=== PATIENT | female | born 1995 | race Caucasian/White ===

== ENCOUNTER 2025-04-24 08:52 | Emergency (ER) | payer OTHER, SELFPAY ==
[2025-04-24 08:54] VITALS: BP 136/97
--- NOTE | 2025-04-24 08:59 | ED.GENMED ---
History of Present Illness
General
Chief Complaint: Problems
Source: patient
Exam Limitations: none
Time Seen by Provider: 04/24/25 08:59
Nursing documentation reviewed up to this point in time: agreed with
History of Present Illness
History of Present Illness:
Patient is a 29-year-old female sent by [facility]YS[facility] [employer] Dr. Garcia. Patient was sent for evaluation as her hCG is not rising appropriate Patient reports her last menstrual period was March 15. On April 18 her beta was 414 on April 20 it was 644
and April 23 it was 801. Patient did have an episode of spotting 2 weeks ago however has not had any bleeding since then. She has no abdominal pain. This is patient's first .
Phy Exam
General Physical Exam
General Presentation: no apparent distress
General age: appears stated age
General Skin: warm and dry
General Habitus: normal
General Mental: alert
General Hydration: appears well hydrated
Gastrointestinal Exam
Gastrointestinal Exam: non tender and soft
Neurological Exam
Neurological Exam: alert and oriented x3
Musculoskeletal Exam
Musculoskeletal Exam: full ROM
Skin Exam
Skin Exam: normal color and warm/dry
Psychiatric Exam
Psychiatric Exam: normal mood/affect
Course
Orders/Labs/Results
Orders:
Orders
04/24/25 09:17
IV Insert/Care/Rem.- Treatment PRN
0.9% Sodium Chloride 1000 ml [Nss] 1,000 ml IV BOLUS
US W Transvaginal Urgent
Reason For Exam: hcg not rising poss ectopic
04/24/25 09:35
Beta HCG Quantitative Urgent
Is this a screen?: No
Complete Blood Count/With Diff Urgent
Comprehensive Metabolic Panel Urgent
04/24/25 11:14
Add On- LAB Urgent
Comments:: SST tube in lab
Tests Added?: Progesterone
Abnormal Lab Results
04/24/25
09:35
RBC 4.18 L 10^6/uL
(4.20-5.40)
Sodium 134 L mmol/L
(135-145)
Glucose 105 H mg/dl
(70-99)
04/24/25 09:35
04/24/25 09:35
Vital Signs
Initial and Last Documented VS:
Initial Vital Signs
Temp Pulse Resp BP Pulse Ox
98.4 F 105 16 136/97 98
04/24/25 08:54 04/24/25 08:54 04/24/25 08:54 04/24/25 08:54 04/24/25 08:54
Last Documented Vital Signs
Temp Pulse Resp BP Pulse Ox
98 F 85 16 112/73 99
04/24/25 09:10 04/24/25 11:34 04/24/25 09:10 04/24/25 11:34 04/24/25 11:34
Information
Weeks gestation: N/A
Location: N/A
MDM/Problems Addressed
Differential Diagnosis Includes:
Not limited to failed , ectopic
MDM/Problems Addressed:
As documented patient is a 29-year-old female 1 sent by her doctor for inappropriate rising of hCG levels. Patient's hCG on April 18 was 414, on April 20 was 644 and yesterday was 801. Today's hCG is 656.57 she was sent in for concern
for ectopic. Patient had an episode of spotting 2 weeks ago no bleeding since and has had no abdominal pain. Ultrasound today does not show any acute findings consistent with ectopic. There is no free fluid or adnexal mass. There is a cystic
structure within the endometrial canal which may represent a gestational sac but no embryo or yolk sac is visualized.
She is well-appearing in the ER case discussed with [facility].
11:00: Dr. Matthew currently at bedside eval pt
As discussed with OB patient to be discharged home for repeat outpatient hCG quantitative in 2 days. I did write patient a prescription for outpatient blood work and instructed her to go to the [place] lab. She will then follow-up with her
[facility]. She was given strict return precautions. She is presently asymptomatic with no bleeding no pain.
*Radiology
Radiology exam reviewed: radiology read reviewed
*Pulse Oximetry
SaO2: 98
Oxygen Mode of Delivery: Room air
Patient hypoxic: no
*Critical Care Note
Total Time (30-74mins, 75-104mins- exclusive of procedures): Not Applicable
Patient Management
Discussion with other providers: Railroad Conductor (OB DR Matthew )
ED Attending Note
-
Portions of this chart may have been created with voice recognition software.� Occasional wrong word or��sound alike� substitutions may have occurred due to the inherent limitations of voice recognition software.
Discharge Plan
Departure
Patient Disposition: Home (Routine Discharge)
Date of Disposition: 04/24/25
Time of Disposition: 11:27
Patient with high blood pressure during this ER visit?: Yes
Condition: Fair
Covid-19: Not Applicable
Discharge Problem:
Threatened miscarriage
Instructions: Threatened Miscarriage (DC)
Referrals:
Chuyita Mccarty CRNP [Family Provider, Internal Medicine]
Gloria Matthew MD [Active, Gynecology]
Activity Restrictions/Additional Instructions:
As discussed please go to the outpatient lab in 2 days for an hCG quantitative blood test
Follow-up with [facility] as discussed and return to the ER if any worsening of symptoms including pain or bleeding.
Interventions
Interventions:
*Risk Screen - Suicide Last Done: 04/24/25 09:40
*General Assessment Last Done: 04/24/25 09:40
*Neglect/Abuse Screening Last Done: 04/24/25 09:40
*ED- Fall Risk Assessment Last Done: 04/24/25 09:40
*ED COVID-19 Vaccine History Last Done: 04/24/25 09:40
*ED Influenza Vaccine History Last Done: 04/24/25 09:40
ED-Female Genitourinary Assessment Last Done: 04/24/25 09:40
Discharge Date and Time
Print Language: ITALIAN
[2025-04-24 09:10] VITALS: BP 131/80; BMI 29.7
--- NOTE | 2025-04-24 09:11 | EDRN ---
Bunny Whitmore NP in room w/ pt
[2025-04-24] MEDS: NSS 1000 IV (09:35)
[2025-04-24 09:47] LABS: Hematocrit 37.6 % (37.0-47.0); Hemoglobin 12.4 g/dL (12.0-16.0); Mean Corp Hgb Conc. 33.0 g/dL (33.0-37.0); Mean Corpuscular Volume 90.0 fL (81.0-99.0); Nucleated Red Blood Cells % 0 %; Platelet Count 270 10^3/uL (130-400); Red Cell Dist. Width 13.0 % (11.5-14.5)
[2025-04-24 09:59] LABS: ALT (SGPT) 15 U/L (0-35); AST (SGOT) 20 U/L (14-36); Albumin 4.6 g/dl (3.5-5.0); Alkaline Phosphatase 62 U/L (38-126); Blood Urea Nitrogen 10 mg/dl (7-17); Calcium 9.4 mg/dl (8.4-10.2); Carbon Dioxide 23 mmol/L (22-30); Chloride 103 mmol/L (98-107); Estimated Creatinine Clearance > 125 ml/min; Glucose 105 mg/dl (70-99); Potassium 3.9 mmol/L (3.5-5.1); Sodium 134 mmol/L (135-145); Total Protein 7.7 g/dl (6.3-8.2); eGFR > 60.00
[2025-04-24 10:16] LABS: Beta HCG Quantitative 656.57 mIU/ml
--- NOTE | 2025-04-24 11:07 | EDRN ---
Dr. Abreu in room w/ pt at this time.
--- NOTE | 2025-04-24 11:15 | EDRN ---
Dr. Abreu ordered verbally to this RN to add on a progesterone. This RN added on the progesterone and informed lab of add on.
[2025-04-24 11:34] VITALS: BP 112/73
== END 2025-04-24 12:56 | disposition home or self-care (01) ==
LOC: EMR 08:52
PROVIDERS: Nurse Practitioner; EMERGENCY PHYSICIAN Emergency Medicine; FAMILY PHYSICIAN Nurse Practitioner Adult Health
DX: O20.0 Threatened abortion (principal); Z3A.01 Less than 8 weeks gestation of pregnancy; R03.0 Elevated blood-pressure reading, without diagnosis of hypertension
CPT/HCPCS: 99284; 96360; 76801; 76817; 80053; 84144; 84702; 85025

== ENCOUNTER → 2025-04-26 08:26 | Outpatient (REF) | payer OTHER, SELFPAY ==
[2025-04-26 10:38] LABS: Beta HCG Quantitative 712.66 mIU/ml
== END ==
LOC: REG 08:26
PROVIDERS: ATTENDING PHYSICIAN Obstetrics & Gynecology; FAMILY PHYSICIAN Nurse Practitioner Adult Health
DX: O26.91 Pregnancy related conditions, unspecified, first trimester (principal)
CPT/HCPCS: 36415; 84702

== ENCOUNTER 2025-04-27 08:41 | Emergency (ER) | payer OTHER, SELFPAY ==
[2025-04-27 08:45] VITALS: BP 121/83
--- NOTE | 2025-04-27 09:22 | ED.GENMED ---
History of Present Illness
General
Chief Complaint: Problems
Source: patient
Exam Limitations: none
Time Seen by Provider: 04/27/25 09:14
Nursing documentation reviewed up to this point in time: agreed with
History of Present Illness
History of Present Illness:
29-year-old female presenting to the emergency department today with concerns of inappropriately rising quant of hCG levels in the setting of early with concerns for potential ectopic according to the patient's OB doctor. She
denies any pain or bleeding at this point. She follows with [facility].
Review of Systems
Review of Systems
Allergies reviewed?: Yes
All Other Systems: ROS reviewed and negative except as documented in HPI and ROS
Phy Exam
Physical Exam
Physical Exam:
GENERAL: Alert , in no apparent distress
EYE: pupils equal and reactive
NECK: Supple, no significant adenopathy.
ENT: o/p clr, mmm.
CARDIAC: Regular rate and rhythm .
LUNGS: Clear breath sounds bilaterally, no acute respiratory distress, no wheezes/rales/rhonchi
ABDOMEN: Soft, without focal tenderness, no r/g, no cvat
NEUROLOGICAL: Alert and oriented, no focal neuro deficits
SKIN: Warm and dry, skin intact.
MUSCULOSKELETAL: No edema, well perfused.
PSYCH: Normal and appropriate interaction.
Course
Orders/Labs/Results
Orders:
Orders
04/27/25 09:12
US W Transvaginal Urgent
Comment:
Reason For Exam: OB request, ectopic eval
04/27/25 09:22
Beta HCG Quantitative Urgent
Is this a screen?: No
CBC/With Diff [Complete Blood Count/With Diff] Urgent
CMP [Comprehensive Metabolic Panel] Urgent
04/27/25 12:21
Type+Screen Urgent
04/27/25 15:00
Methotrexate Sodium/Pf [Methotrexate] 47 mg Intramuscular Injection 0 ml IM ONCE
Methotrexate Sodium/Pf [Methotrexate] 48 mg Intramuscular Injection 0 ml IM ONCE
Abnormal Lab Results
04/27/25
09:22
Glucose 108 H mg/dl
(70-99)
Total Protein 8.3 H g/dl
(6.3-8.2)
04/27/25 09:22
04/27/25 09:22
Vital Signs
Initial and Last Documented VS:
Initial Vital Signs
Temp Pulse Resp BP Pulse Ox
98.6 F 85 18 121/83 98
04/27/25 08:45 04/27/25 08:45 04/27/25 08:45 04/27/25 08:45 04/27/25 08:45
Last Documented Vital Signs
Temp Pulse Resp BP Pulse Ox
98.6 F 82 14 120/80 99
04/27/25 08:45 04/27/25 15:01 04/27/25 15:01 04/27/25 15:01 04/27/25 15:01
Information
Weeks gestation: N/A
Location: N/A
MDM/Problems Addressed
MDM/Problems Addressed:
29-year-old female sent in due to concern for potential ectopic . Patient on arrival is well-appearing no distress with normal vital signs. No abdominal pain to palpation. It was recommended get an ultrasound as well as quantitative hCG
per OB. Ultrasound results and hCG were discussed with OB recommending methotrexate but otherwise patient stable for discharge at this time and precautions given
*Pulse Oximetry
SaO2: 98
Oxygen Mode of Delivery: Room air
Patient hypoxic: no (99)
*Critical Care Note
Total Time (30-74mins, 75-104mins- exclusive of procedures): Not Applicable
ED Attending Note
-
Portions of this chart may have been created with voice recognition software.� Occasional wrong word or��sound alike� substitutions may have occurred due to the inherent limitations of voice recognition software.
Discharge Plan
Departure
Patient Disposition: Home (Routine Discharge)
Date of Disposition: 04/27/25
Time of Disposition: 14:12
Patient with high blood pressure during this ER visit?: No
Condition: Good
Covid-19: Not Applicable
Discharge Problem:
Ectopic
Instructions: Miscarriage (DC)
Referrals:
Chuyita Mccarty CRNP [Family Provider, Internal Medicine]
Activity Restrictions/Additional Instructions:
You came to the emergency department today and received methotrexate. Please get the subsequent serum quantitative hCGs on Wednesday and . Return for any worsening, new or concerning symptoms and follow-up closely with OB.
Interventions
Interventions:
*Risk Screen - Suicide Last Done: 04/27/25 08:45
*General Assessment Last Done: 04/27/25 09:30
*Neglect/Abuse Screening Last Done: 04/27/25 08:45
*ED- Fall Risk Assessment Last Done: 04/27/25 09:30
*ED COVID-19 Vaccine History Last Done: 04/27/25 09:30
*ED Influenza Vaccine History Last Done: 04/27/25 09:30
*Nursing Disposition Last Done: 04/27/25 15:09
ED-Female Genitourinary Assessment Last Done: 04/27/25 09:30
Discharge Date and Time
Discharge Date/Time: 04/27/25 15:15
Print Language: GEORGIAN
[2025-04-27 09:29] VITALS: BMI 29.0
[2025-04-27 09:32] LABS: Hematocrit 38.5 % (37.0-47.0); Hemoglobin 12.8 g/dL (12.0-16.0); Mean Corp Hgb Conc. 33.2 g/dL (33.0-37.0); Mean Corpuscular Volume 87.5 fL (81.0-99.0); Nucleated Red Blood Cells % 0 %; Platelet Count 285 10^3/uL (130-400); Red Cell Dist. Width 12.9 % (11.5-14.5)
[2025-04-27 09:45] LABS: ALT (SGPT) 15 U/L (0-35); AST (SGOT) 19 U/L (14-36); Albumin 4.8 g/dl (3.5-5.0); Alkaline Phosphatase 63 U/L (38-126); Blood Urea Nitrogen 9 mg/dl (7-17); Calcium 9.8 mg/dl (8.4-10.2); Carbon Dioxide 24 mmol/L (22-30); Chloride 104 mmol/L (98-107); Estimated Creatinine Clearance > 125 ml/min; Glucose 108 mg/dl (70-99); Potassium 3.9 mmol/L (3.5-5.1); Sodium 135 mmol/L (135-145); Total Protein 8.3 g/dl (6.3-8.2); eGFR > 60.00
[2025-04-27 10:15] LABS: Beta HCG Quantitative 737.45 mIU/ml
[2025-04-27] MEDS: METHOTREXATE 1.92 MG IM (14:54)
[2025-04-27] MEDS: METHOTREXATE 1.88 MG IM (14:55)
[2025-04-27 15:01] VITALS: BP 120/80
--- NOTE | 2025-04-27 17:42 | CON.MD ---
Consultation - Medical
-
Consult: inappropriately rising hcgs
HPI: Patient is a 29yo with an LMP on 03/15 who presented to the ED at my request for hcgs that have not been rising appropriately. Last week, she had some brown spotting and had an hcg drawn on 04/18 that was 414 then on 04/20 was 644 and 04/23
801 (these were all at [facility]). She presented to the ED on 04/24 and had an hcg at that was 656. An US that was performed showed a possible gestational measuring 4w6d. Patient was sent home for repeat hcg in 48hrs. On 04/26 she had an hcg that was
712. Since her hcgs were still inappropriately rising, it was requested she come back to the ED. She has no complaints today. She denies any further vaginal bleeding and does not have any abdominal pain.
Today, her hcg is 737 and US shows a gestational sac measuring 0.41cm (previously measuring 0.5cm). There was no yolk sac or pole.
PMHx: anxiety
Meds: PNV
NKDA
Surghx:wisdom teeth
Socialhx: occ etoh, denies tobacco or illicit drug use
Famhx: non-contributory
OBHx:
O
BP 120/80, VSS
General: well appearing
Cardio: regular
Pulm: no increased work of breathing
Labs: CBC/CMP wnl. Hcg 737
Pelvic US
FINDINGS: A transabdominal and transvaginal scan, the latter for better evaluation of the uterus and adnexa, was performed. The uterus is anteverted and measures 8.7 x 4.0 x 6.6. cm. No abnormal focal myometrial lesions are identified.
The endometrial echo complex measures up to 1.2 cm in thickness. As seen previously, there is a small ovoid cystic structure along the endometrium. This measures 0.5 cm in diameter. The mean sac diameter is 0.41 cm. No pole is visible within.
There is no identifiable yolk sac. On the previous exam, this measured up to 0.5 cm in diameter.
The right ovary measures 2.6 x 1.5 x 2.3 cm with a volume of 4.7 cc.
The left ovary measures 3.0 x 1.9 x 1.7 cm with a volume of 5.0 cc.
No abnormal ovarian or adnexal lesions are seen. There is no free fluid within the pelvis.
IMPRESSION:
1. Mean gestational sac diameter of 0.41 cm and no identifiable embryo at transvaginal sonography is consistent with failed early .
2. No free fluid within the pelvis. No abnormal ovarian or adnexal lesions identified.
A/P: 29yo with an LMP of 03/15 presents with inappropriately rising hcgs
- Discussed with patient that based on her hcgs and ultrasounds, this is not a normal . The gestational sac seen on ultrasound could also be a pseudosac associated with an ectopic
- Management reviewed with patient: She has 2 options
- Proceed with methotrexate since we know this is an abnormal and follow hcgs or
- Proceed with a D&E and send for frozen section to see if there are chorionic villi present and if there are, then we know this is early loss and if there aren't, proceed with methotrexate for of unknown location
- Risks and benefits of each reviewed including risks of surgery and methotrexate. After discussion, patient would like to proceed with methotrexate.
- Methotrexate administered in the ED. Patient counseled extensively about the importance of continued follow up to trend hcg levels. Aware she needs one on Wednesday and one on - she was given an order for the one on Wednesday in the ED. She is
to stop her vitamin and avoid strenuous activity/intercourse. She was counseled on strict return precautions -severe abdominal pain or heavy vaginal bleeding.
- Blood type A+, Rhogam not indicated
== END 2025-04-27 15:15 | disposition home or self-care (01) ==
LOC: EMR 08:41
PROVIDERS: Physician Assistant; EMERGENCY PHYSICIAN Emergency Medicine; FAMILY PHYSICIAN Nurse Practitioner Adult Health
DX: O00.90 Unspecified ectopic pregnancy without intrauterine pregnancy (principal); Z3A.01 Less than 8 weeks gestation of pregnancy
CPT/HCPCS: 99284; 96372; 76801; 76817; 80053; 84702; 85025; 86850; 86900; 86901; J9260

== ENCOUNTER → 2025-04-30 07:54 | Outpatient (REF) | payer OTHER, SELFPAY ==
[2025-04-30 09:27] LABS: Beta HCG Quantitative 926.93 mIU/ml
== END ==
LOC: REG 07:54
PROVIDERS: ATTENDING PHYSICIAN Physician Assistant; FAMILY PHYSICIAN Nurse Practitioner Adult Health
DX: O26.91 Pregnancy related conditions, unspecified, first trimester (principal)
CPT/HCPCS: 36415; 84702

== ENCOUNTER → 2025-05-03 08:10 | Outpatient (REF) | payer OTHER, SELFPAY ==
[2025-05-03 10:54] LABS: Beta HCG Quantitative 910.73 mIU/ml
== END ==
LOC: REG 08:10
PROVIDERS: ATTENDING PHYSICIAN Physician Assistant; FAMILY PHYSICIAN Nurse Practitioner Adult Health
DX: O26.91 Pregnancy related conditions, unspecified, first trimester (principal)
CPT/HCPCS: 36415; 84702

== ENCOUNTER 2025-05-03 16:42 | Emergency (ER) | payer OTHER, SELFPAY ==
[2025-05-03 16:47] VITALS: BP 132/88
[2025-05-03 18:00] VITALS: BP 128/68
[2025-05-03 18:49] LABS: Hematocrit 35.9 % (37.0-47.0); Hemoglobin 12.1 g/dL (12.0-16.0); Mean Corp Hgb Conc. 33.7 g/dL (33.0-37.0); Mean Corpuscular Volume 87.6 fL (81.0-99.0); Nucleated Red Blood Cells % 0 %; Platelet Count 297 10^3/uL (130-400); Red Cell Dist. Width 13.0 % (11.5-14.5)
--- NOTE | 2025-05-03 19:02 | ED.GENMED ---
History of Present Illness
<Milli Lopez PA-C - Last Filed: 05/04/25 09:21>
General
Chief Complaint: Problems
Source: patient
Exam Limitations: none
Time Seen by Provider: 05/03/25 17:31
Nursing documentation reviewed up to this point in time: agreed with
History of Present Illness
History of Present Illness:
Patient is a 29-year-old who presents to the emergency department for evaluation of abnormal hCG levels. Patient states that she has had very close monitoring of her hCG levels as they have been rising inappropriately in early .
There was concern that she may have an ectopic . Patient was given a dose of methotrexate on 04/27/2025. Her repeat hCG levels drawn today were not declining as expected and was sent to the emergency department for further evaluation.
Patient had a few episodes of vaginal spotting 2 weeks ago which has since resolved. She denies any current abdominal pain or cramping. No lightheadedness, dizziness, shortness of breath.
Patient's hCG value was 737.45 on 04/27/2025 prior to methotrexate, 926.93 on 04/30/2025, and 910.73 today, on 05/03/2025.
This is patient's first .
Review of Systems
<Milli Lopez PA-C - Last Filed: 05/04/25 09:21>
Review of Systems
Allergies reviewed?: Yes
All Other Systems: ROS reviewed and negative except as documented in HPI and ROS
Phy Exam
<Milli Lopez PA-C - Last Filed: 05/04/25 09:21>
Physical Exam
Physical Exam:
Vitals: Patient's vital signs are stable. Afebrile
General: Patient is well appearing, no acute distress. Nontoxic-appearing
Skin: Warm and dry, no rashes or lesions
Head: Normocephalic, atraumatic
Eyes: Sclera nonicteric.
Throat: Protecting airway
Neck: Normal ROM, no cervical spine tenderness, no meningismus
Cardiac: Regular rate and rhythm.
Pulm: Normal respiratory effort. Lungs clear bilaterally
Abdomen: Abdomen soft and nontender. No rebound or guarding
Extremities: No evidence of cyanosis or edema
Neuro: AAOx3. Grossly intact.
Psychiatric: Normal affect.
Course
<Milli Lopez PA-C - Last Filed: 05/04/25 09:21>
Orders/Labs/Results
Orders:
Orders
05/03/25 18:02
1st Trimester US [US 1st Trimester] Urgent
Comment:
Reason For Exam: possible ectopic
05/03/25 18:05
Consult PROGRAM REVIEW DIRECTOR [PROGRAM REVIEW DIRECTOR CONSULT] Urgent
Consulting Provider: Serena Khan
Was physician already notified: Yes
05/03/25 18:27
Type+Screen Urgent
Complete Blood Count/With Diff Urgent
Comprehensive Metabolic Panel Urgent
HCG, Beta Quantitative [Beta HCG Quantitative] Urgent
Is this a screen?: No
05/04/25 11:00
Methotrexate Sodium/Pf [Methotrexate] 49 mg Intramuscular Injection 0 ml IM ONCE@1100,1101
Abnormal Lab Results
05/03/25
18:27
RBC 4.10 L 10^6/uL
(4.20-5.40)
Hct 35.9 L %
(37.0-47.0)
Sodium 133 L mmol/L
(135-145)
05/03/25 18:27
05/03/25 18:27
Vital Signs
Initial and Last Documented VS:
Initial Vital Signs
Temp Pulse Resp BP Pulse Ox
98.2 F 79 18 132/88 97
05/03/25 16:47 05/03/25 16:47 05/03/25 16:47 05/03/25 16:47 05/03/25 16:47
Last Documented Vital Signs
Temp Pulse Resp BP Pulse Ox
98.4 F 60 18 109/65 99
05/03/25 23:02 05/03/25 23:02 05/03/25 23:02 05/03/25 23:02 05/03/25 23:02
<Grace Wing PA-C - Last Filed: 05/04/25 00:21>
Orders/Labs/Results
Orders:
Orders
05/03/25 18:02
1st Trimester US [US 1st Trimester] Urgent
Comment:
Reason For Exam: possible ectopic
05/03/25 18:05
Consult PROGRAM REVIEW DIRECTOR [PROGRAM REVIEW DIRECTOR CONSULT] Urgent
Consulting Provider: Serena Khan
Was physician already notified: Yes
05/03/25 18:27
Type+Screen Urgent
Complete Blood Count/With Diff Urgent
Comprehensive Metabolic Panel Urgent
HCG, Beta Quantitative [Beta HCG Quantitative] Urgent
Is this a screen?: No
05/04/25 11:00
Methotrexate Sodium/Pf [Methotrexate] 49 mg Intramuscular Injection 0 ml IM ONCE@1100,1101
Abnormal Lab Results
05/03/25
18:27
RBC 4.10 L 10^6/uL
(4.20-5.40)
Hct 35.9 L %
(37.0-47.0)
Sodium 133 L mmol/L
(135-145)
05/03/25 18:27
05/03/25 18:27
Vital Signs
Initial and Last Documented VS:
Initial Vital Signs
Temp Pulse Resp BP Pulse Ox
98.2 F 79 18 132/88 97
05/03/25 16:47 05/03/25 16:47 05/03/25 16:47 05/03/25 16:47 05/03/25 16:47
Last Documented Vital Signs
Temp Pulse Resp BP Pulse Ox
98.4 F 60 18 109/65 99
05/03/25 23:02 05/03/25 23:02 05/03/25 23:02 05/03/25 23:02 05/03/25 23:02
Information
Weeks gestation: N/A
Location: N/A
<Milli Lopez PA-C - Last Filed: 05/04/25 09:21>
MDM/Problems Addressed
Differential Diagnosis Includes:
Not limited to: Ectopic , threatened , missed , etc.
MDM/Problems Addressed:
29-year-old female, presenting with abnormal HCG values. Patient received methotrexate 6 days ago for a concern of ectopic and has had abnormal decline in values since.
Patient asymptomatic with no current complaints. She has stable vital signs, is hemodynamically stable. Physical exam as above.
I did discuss with PROGRAM REVIEW DIRECTOR who recommends repeat lab work, HCG, pelvic ultrasound.
Will obtain and reassess after above.
Update: basic labs unremarkable. hCG of 793.38 which has decreased somewhat since this morning. Ultrasound shows an intrauterine gestational sack without any yolk sac or pole.
Patient remains asymptomatic. Findings discussed with patient.
I did discuss with PROGRAM REVIEW DIRECTOR who will come down and discuss options with patient in ED
Dispo pending PROGRAM REVIEW DIRECTOR evaluation.
Case signed out to Grace Wing PA-C pending OBGYN consult
Chronic conditions affecting care:
N/A
Acute Exacerbation and/or Progression of Chronic Illness:
N/A
<Milli Lopez PA-C - Last Filed: 05/04/25 09:21>
*Pulse Oximetry
SaO2: 97
Oxygen Mode of Delivery: Room air
Patient hypoxic: no
*EKG
Interpreted by ED Provider?: NA
*Supervisor Correspondence Section Interpretation
Rate: Supervisor Correspondence Section- N/A
*Critical Care Note
Total Time (30-74mins, 75-104mins- exclusive of procedures): Not Applicable
<Milli Lopez PA-C - Last Filed: 05/04/25 09:21>
Patient Management
Discussion with other providers: Surface Supervisor (Case discussed w/ OBGYN)
<Grace Wing PA-C - Last Filed: 05/04/25 00:21>
Update Note
Update Note:
I assumed care of patient awaiting PROGRAM REVIEW DIRECTOR evaluation. Patient was evaluated by Dr. Khan at bedside and decision made to give second dose of methotrexate. Plan is to have repeat blood work done on Wednesday and have outpatient follow-up with the
OB office. Patient in agreement with plan and she was discharged in stable condition.
ED Attending Note
<Milli Lopez PA-C - Last Filed: 05/04/25 09:21>
-
Portions of this chart may have been created with voice recognition software.� Occasional wrong word or��sound alike� substitutions may have occurred due to the inherent limitations of voice recognition software.
Discharge Plan
Departure
Patient Disposition: Home (Routine Discharge)
Date of Disposition: 05/03/25
Time of Disposition: 23:00
Patient with high blood pressure during this ER visit?: No
Discharge Problem:
of unknown anatomic location
Instructions: Methotrexate, Ectopic - ED (DC)
Referrals:
Chuyita Mccarty CRNP [Family Provider, Internal Medicine]
Activity Restrictions/Additional Instructions:
Go for repeat blood work on Wednesday.
Please follow-up with your OBGYN team. Return to the ER with any worsening symptoms including worsening bleeding/pain or passing out.
Interventions
Interventions:
*Risk Screen - Suicide Last Done: 05/03/25 16:47
*General Assessment Last Done: 05/03/25 16:47
*Neglect/Abuse Screening Last Done: 05/03/25 16:47
*ED- Fall Risk Assessment Last Done: 05/03/25 18:46
*ED COVID-19 Vaccine History Last Done: 05/03/25 23:40
*ED Influenza Vaccine History Last Done: 05/03/25 23:40
*Nursing Disposition Last Done: 05/03/25 23:40
ED-Female Genitourinary Assessment Last Done: 05/03/25 18:44
Discharge Date and Time
Discharge Date/Time: 05/03/25 23:40
Print Language: PUERTO RICAN
[2025-05-03 19:07] LABS: ALT (SGPT) 16 U/L (0-35); AST (SGOT) 20 U/L (14-36); Albumin 4.7 g/dl (3.5-5.0); Alkaline Phosphatase 51 U/L (38-126); Blood Urea Nitrogen 9 mg/dl (7-17); Calcium 9.4 mg/dl (8.4-10.2); Carbon Dioxide 28 mmol/L (22-30); Chloride 100 mmol/L (98-107); Glucose 83 mg/dl (70-99); Potassium 3.9 mmol/L (3.5-5.1); Sodium 133 mmol/L (135-145); Total Protein 7.9 g/dl (6.3-8.2); eGFR > 60.00
[2025-05-03 19:27] LABS: Beta HCG Quantitative 793.38 mIU/ml
[2025-05-03 20:42] VITALS: BP 115/69
--- NOTE | 2025-05-03 22:36 | CON.MD ---
CC / HPI / ROS
-
Chief Complaint:
of unknown location, abnormal drop in hCG
History of Present Illness:
Arthur is a 29-year-old G1, P0 presenting from the office with of unknown location (likely ectopic) and inappropriate drop in quantitative beta-hCG. Patient and her partner were trying to get and experienced early spotting which
prompted ultrasounds and beta-hCG's.
On 04/27/2025 her hCG was noted to be 737 from 656 on 04/24/2025. Given the abnormal rise he received 1 dose of methotrexate. On day 4 her quant was 926 and her day 7 quant was 910 which prompted presentation to emergency department. She has
remained asymptomatic with no pain and no vaginal bleeding. Repeat beta-hCG in the ER was noted to be 793.
She has no significant past medical or past surgical history.
Review of Systems:
Noncontributory
Current/Past Med/Surg History
-
Respiratory: No Issues Reported
Vascular / Heart: No Issues Reported
Neurological / Brain / Spinal Cord: No Issues Reported
Gastrointestinal/Bowel/Digestive: No Issues Reported
Musculoskeletal: No Issues Reported
Urinary/Reproductive: No Issues Reported
Operations / Procedures
Past Surgical History: None
Medications / Supplements
Medication / Herbal Supplements: No
Allergies
Allergies: No
Allergy/AdvReac Type Severity Reaction Status Date / Time
No Known Allergies Allergy Verified 05/03/25 16:47
Vital Signs and Labs
-
Vital Signs and Labs:
Vital Signs
Temp Pulse Resp BP Pulse Ox
98.4 F 60 18 109/65 99
05/03/25 23:02 05/03/25 23:02 05/03/25 23:02 05/03/25 23:02 05/03/25 23:02
Lab Results
05/03/25 18:27
05/03/25 18:27
Sodium 133 mmol/L (135-145) L 05/03/25 18:27
Potassium 3.9 mmol/L (3.5-5.1) 05/03/25 18:27
BUN 9 mg/dl (7-17) 05/03/25 18:27
Glucose 83 mg/dl (70-99) 05/03/25 18:27
Calcium 9.4 mg/dl (8.4-10.2) 05/03/25 18:27
hC
Data Reviewed / Physical Exam
-
Vital Signs
Temp Pulse Resp BP Pulse Ox
98.4 F 60 18 109/65 99
05/03/25 23:02 05/03/25 23:02 05/03/25 23:02 05/03/25 23:02 05/03/25 23:02
Lab Results
05/03/25
18:27
Glucose 83
Physical Exam:
General: No acute distress
Lungs: no increased work of breathing
Heart: regular rate
Abd: soft, nontender, nondistended
Ext: nontender calves
Assessemnt/Plan
-
Arthur is a 29 yo F presenting with of unknown location s/p 1 dose of MTX.
-Discussed ultrasound findings of a possible intrauterine gestational sac measuring 5 weeks 1 day and no sonographic evidence of an ectopic . Reviewed that hCG levels and trend are abnormal likely representing a miscarriage or an ectopic
. Given repeat hCG in the ER decreasing to 793, discussed recommendation for either additional dose of methotrexate or surgical intervention with dilation and evacuation with frozen versus diagnostic laparoscopy. Reviewed that there is no
sonographic evidence of an ectopic or hemoperitoneum making a diagnostic laparoscopy not be ideal for step. Patient would like to avoid surgery if possible and would like to try an additional dose of methotrexate.
-Patient aware that this is an abnormal . Patient also aware to abstain from intercourse (which she has already).
-Discussed recommendation for day 11 quantitative hCG on 05/07/2025 and if greater than 15% decrease then patient can have weekly hCGs until 0. Discussed that patient's decrease in hCG from day 4 to day 7 was 14%. Given patient is
asymptomatic, reasonable to give a second dose of methotrexate.
-Reviewed that patient and partner can attempt to conceive once hCG reaches 0 and when 3 months out from last methotrexate dose. Reviewed strict ER return precautions. All questions answered to the best my ability.
[2025-05-03 23:02] VITALS: BP 109/65
[2025-05-03] MEDS: METHOTREXATE 1.96 MG IM ×2 (23:34→23:37)
== END 2025-05-03 23:40 | disposition home or self-care (01) ==
LOC: EMR 16:42
PROVIDERS: Physician Assistant; CONSULT PHYSICIAN Obstetrics & Gynecology; EMERGENCY PHYSICIAN Emergency Medicine; FAMILY PHYSICIAN Nurse Practitioner Adult Health
DX: O36.80X0 Pregnancy with inconclusive fetal viability, not applicable or unspecified (principal); Z3A.01 Less than 8 weeks gestation of pregnancy
CPT/HCPCS: 99284; 96372; 76801; 80053; 84702; 85025; 86850; 86900; 86901; J9260

== ENCOUNTER → 2025-05-07 07:14 | Outpatient (REF) | payer OTHER, SELFPAY ==
[2025-05-07 08:52] LABS: Beta HCG Quantitative 379.57 mIU/ml
== END ==
LOC: REG 07:14
PROVIDERS: ATTENDING PHYSICIAN Obstetrics & Gynecology; FAMILY PHYSICIAN Nurse Practitioner Adult Health
DX: O00.109 Unspecified tubal pregnancy without intrauterine pregnancy (principal)
CPT/HCPCS: 36415; 84702

== ENCOUNTER → 2025-05-14 07:34 | Outpatient (REF) | payer OTHER, SELFPAY ==
[2025-05-14 09:09] LABS: HCG, Serum Qualitative Screen Negative
== END ==
LOC: REG 07:34
PROVIDERS: ATTENDING PHYSICIAN Obstetrics & Gynecology; FAMILY PHYSICIAN Nurse Practitioner Adult Health
DX: O00.109 Unspecified tubal pregnancy without intrauterine pregnancy (principal)
CPT/HCPCS: 36415; 84703